=== PATIENT | male | born 1980 ===

== ENCOUNTER 2019-10-03 14:33 | Outpatient (CLI) | payer MEDICAID | END 2019-10-03 14:34 | disposition critical access hospital (66) | LOC: EMS 14:33 | PROVIDERS: ATTEND Surgery | DX: R46.89 Other symptoms and signs involving appearance and behavior (principal); R47.81 Slurred speech | CPT/HCPCS: A0425; A0429; A0999 ==

== ENCOUNTER 2019-10-03 14:52 | Emergency (ER) | payer MEDICAID ==
--- NOTE | 2019-10-03 15:00 | ED Physician Documentation ---
<Julito Hauser - Last Filed: 10/03/19 22:52> PD HPI MHE - Stated complaint Stated Complaint: MHE/SI/HI - History obtained from History obtained from: Patient, EMS - History of Present Illness Timing - onset: Today (38-year-old gentleman without pertinent medical history presents by ambulance restrained for mental health evaluation. He admits to using methamphetamines but will not tell me when, admits to using alcohol just prior to arrival. I guess he was outside of a local [employer] store and yelling profanities and may be brandishing a knife. He is somewhat uncooperative historian.) Review of Systems Unable to obtain: Uncooperative PD PAST MEDICAL HISTORY - Present Medications Home Medications: Ambulatory Orders Medication Instructions Recorded Confirmed Home Medications Unobtainable 10/03/19 10/03/19 [HOME MEDICATIONS UNOBTAINABLE] - Allergies Allergies/Adverse Reactions: Allergies Allergy/AdvReac Type Severity Reaction Status Date / Time No Known Drug Allergies Allergy Verified 10/03/19 15:11 PD ED PE NORMAL - Vitals Vital signs reviewed: Yes - General General: Other (He seems to be alert and oriented, hypervigilant, moving a lot.) - HEENT HEENT: PERRL, EOMI - Neck Neck: Supple, no meningeal sign, No bony TTP - Cardiac Cardiac: RRR, No murmur - Respiratory Respiratory: No respiratory distress, Clear bilaterally - Abdomen Abdomen: Soft, Non tender - Back Back: No CVA TTP, No spinal TTP - Derm Derm: Normal color, Warm and dry - Extremities Extremities: No deformity, No tenderness to palpate - Neuro Neuro: Alert and oriented X 3, No motor deficit, No sensory deficit, Normal speech - Psych Psych: Other (Uncooperative, somewhat belligerent,) Results - EKG (time done) 1505 Rate: Rate (enter#) (80) Rhythm: NSR [place]: Normal Intervals: Normal RI QRS: Normal Ischemia: Normal ST segments Computer interpretation: Agree with computer PD MEDICAL DECISION MAKING - ED course ED course: 38-year-old Arrives restrained, belligerent and yelling. He required some sedation for safety. Original plan was to sober him up from the mouth and the alcohol and see if he was any better, but after several hours he was not really improving. Now clinically sober from alcohol perspective. I also learned that he at some point had been inpatient at [facility] suggesting Severe underlying organic psychiatric illness. The DCR was dispatched for evaluation. Departure - Departure Disposition: 65 Psych Hosp/Unit DC/Xfer Clinical Impression: Alcoholic intoxication, Methamphetamine intoxication, Psychiatric symptoms Condition: Stable Instructions: ED Drug Abuse General, ED Alcohol Intoxication Comments: I recommend that you stop using alcohol and drugs, they are bad for you. Return anytime for new or worsening symptoms. <Blaze Hyatt - Last Filed: 10/04/19 06:03> Results - Vitals Vitals: Vital Signs - 24 hr 10/03/19 10/03/19 10/04/19 15:11 18:28 00:45 Temperature 36.4 C L 36.7 C 36.5 C Heart Rate 82 70 63 Respiratory 20 14 18 Rate Blood Pressure 112/69 128/62 125/69 O2 Saturation 97 100 100 10/04/19 02:12 Temperature 36.7 C Heart Rate 98 Respiratory 16 Rate Blood Pressure 116/91 H O2 Saturation 97 Oxygen O2 Source Room air - Labs Labs: Laboratory Tests 10/03/19 10/03/19 10/03/19 15:20 15:20 15:40 WBC 7.9 RBC 4.68 L Hgb 14.4 Hct 42.1 MCV 90.0 MCH 30.8 MCHC 34.2 RDW 13.2 Plt Count 267 MPV 9.8 Neut # (Auto) 3.4 Lymph # (Auto) 3.2 [place] # (Auto) 0.8 Eos # (Auto) 0.3 Baso # (Auto) 0.0 Absolute Nucleated RBC 0.00 Nucleated RBC % 0.0 Sodium 139 Potassium 3.6 Chloride 109 Carbon Dioxide 18 L Anion Gap 12.0 BUN 16 Creatinine 0.8 Estimated GFR (MDRD) 109 Glucose 91 Calcium 8.8 Total Bilirubin 1.0 AST 34 ALT 34 Alkaline Phosphatase 63 Total Creatine Kinase 231 Total Protein 7.0 Albumin 4.0 Globulin 3.0 Albumin/Globulin Ratio 1.3 Lipase 28 Urine Color YELLOW Urine Clarity CLEAR Urine pH 6.0 Ur Specific Thelma <=1.005 Urine Protein NEGATIVE Urine Glucose (UA) NEGATIVE Urine Ketones NEGATIVE Urine Occult Blood NEGATIVE Urine Nitrite NEGATIVE Urine Bilirubin NEGATIVE Urine Urobilinogen 0.2 (NORMAL) Ur Leukocyte Esterase NEGATIVE Ur Microscopic Review NOT INDICATED Urine Culture Comments NOT INDICATED Urine Opiates Screen NEGATIVE Ur Oxycodone Screen NEGATIVE Urine Methadone Screen NEGATIVE Ur Propoxyphene Screen NEGATIVE Ur Barbiturates Screen NEGATIVE Ur Tricyclics Screen NEGATIVE Ur Phencyclidine Scrn NEGATIVE Ur Amphetamine Screen POSITIVE H U Methamphetamines Scrn POSITIVE H U Benzodiazepines Scrn NEGATIVE Urine Cocaine Screen NEGATIVE U Cannabinoids Screen NEGATIVE Ethyl Alcohol 201.0 10/03/19 10/03/19 17:55 21:30 WBC RBC Hgb Hct MCV MCH MCHC RDW Plt Count MPV Neut # (Auto) Lymph # (Auto) [place] # (Auto) Eos # (Auto) Baso # (Auto) Absolute Nucleated RBC Nucleated RBC % Sodium Potassium Chloride Carbon Dioxide Anion Gap BUN Creatinine Estimated GFR (MDRD) Glucose Calcium Total Bilirubin AST ALT Alkaline Phosphatase Total Creatine Kinase Total Protein Albumin Globulin Albumin/Globulin Ratio Lipase Urine Color Urine Clarity Urine pH Ur Specific Thelma Urine Protein Urine Glucose (UA) Urine Ketones Urine Occult Blood Urine Nitrite Urine Bilirubin Urine Urobilinogen Ur Leukocyte Esterase Ur Microscopic Review Urine Culture Comments Urine Opiates Screen Ur Oxycodone Screen Urine Methadone Screen Ur Propoxyphene Screen Ur Barbiturates Screen Ur Tricyclics Screen Ur Phencyclidine Scrn Ur Amphetamine Screen U Methamphetamines Scrn U Benzodiazepines Scrn Urine Cocaine Screen U Cannabinoids Screen Ethyl Alcohol 111.3 74.4 PD MEDICAL DECISION MAKING - ED course Complexity details: other (patient signed out to me at shift change by dr hauser. patient accepted at [facility]. )
[2019-10-03] MEDS ORDERED: OLANZapine 10 MG VIAL IM STA ×2 (15:18→19:14)
[2019-10-03] MEDS ORDERED: LORazepam 2 MG/ML VIAL IM STA (15:18)
[2019-10-03 15:26] LABS: BASOPHILS % (AUTO) 0.5 %; EOSINOPHILS # (AUTO) 0.3 10^3/uL (0.0-0.7); EOSINOPHILS % (AUTO) 4.1 %; HGB - HEMOGLOBIN 14.4 g/dL (14.0-18.0); LYMPHOCYTES # (AUTO) 3.2 10^3/uL (1.5-3.5); LYMPHOCYTES % (AUTO) 41.2 %; MEAN CORPUSCULAR HEMOGLOBIN 30.8 pg (27.0-31.0); MEAN CORPUSCULAR HGB CONC 34.2 g/dL (32.0-36.0); MEAN PLATELET VOLUME 9.8 fL (7.4-11.4); MONOCYTES # (AUTO) 0.8 10^3/uL (0.0-1.0); MONOCYTES % (AUTO) 10.1 %; NEUTROPHILS # (AUTO) 3.4 10^3/uL (1.5-6.6); NEUTROPHILS % (AUTO) 43.7 %; PLT - PLATELET COUNT 267 10^3/uL (130-450); RED BLOOD COUNT 4.68 10^6/uL (4.70-6.10); RED CELL DISTRIBUTION WIDTH 13.2 % (12.0-15.0); WHITE BLOOD COUNT 7.9 x10^3/uL (4.8-10.8)
[2019-10-03 15:37] LABS: ALBUMIN/GLOBULIN RATIO 1.3 (1.0-2.2); CALCIUM 8.8 mg/dL (8.5-10.3); CREATININE 0.8 mg/dL (0.6-1.2)
[2019-10-03 15:44] LABS: BILIRUBIN,URINE NEGATIVE (NEGATIVE); GLUCOSE, URINE (UA) NEGATIVE (NEGATIVE); KETONES,URINE (UA) NEGATIVE (NEGATIVE); LEUKOCYTE ESTERASE, URINE NEGATIVE (NEGATIVE); MUDS CUTOFF CONCENTRATIONS CUTOFF CONC BELOW:; NITRITE,URINE NEGATIVE (NEGATIVE); OCCULT BLOOD,URINE NEGATIVE (NEGATIVE); PROTEIN,URINE NEGATIVE (NEGATIVE); UROBILINOGEN,URINE 0.2 (NORMAL) E.U./dL (NORMAL)
[2019-10-03 15:50] LABS: CLARITY,URINE CLEAR (CLEAR)
[2019-10-03 15:57] LABS: AMPHETAMINE SCREEN,URINE POSITIVE (NEGATIVE); BENZODIAZEPINES SCREEN, URINE NEGATIVE (NEGATIVE); COCAINE SCREEN URINE NEGATIVE (NEGATIVE); METHADONE SCREEN, URINE NEGATIVE (NEGATIVE); METHAMPHETAMINES SCREEN, URINE POSITIVE (NEGATIVE); OPIATE SCREEN, URINE NEGATIVE (NEGATIVE); OXYCODONE SCREEN, URINE NEGATIVE (NEGATIVE); PROPOXYPHENE SCREEN, URINE NEGATIVE (NEGATIVE); TRICYCLIC ANTIDEPRESSANT,URINE NEGATIVE (NEGATIVE)
[2019-10-04 09:01] VITALS: BP 137/74
== END 2019-10-04 09:32 ==
LOC: ED 14:52
DX: F29 Unspecified psychosis not due to a substance or known physiological condition (principal); F10.129 Alcohol abuse with intoxication, unspecified; F15.129 Other stimulant abuse with intoxication, unspecified
CPT/HCPCS: 36415; 80053; 80306; 80320; 81003; 82550; 83690; 85025; 93005; 96372; 99285; J2060; 81001; 87086

== ENCOUNTER 2020-12-22 18:29 | Outpatient (CLI) | payer MEDICAID | END 2020-12-22 18:30 | disposition critical access hospital (66) | LOC: EMS 18:29 | DX: R11.2 Nausea with vomiting, unspecified (principal) | CPT/HCPCS: A0425; A0429; A0999 ==

== ENCOUNTER 2020-12-22 18:48 | Emergency (ER) | payer MEDICAID ==
--- NOTE | 2020-12-22 20:35 | ED Physician Documentation ---
History of Present Illness - Stated complaint Stated Complaint: ETOH/ VOMITING - Chief complaint Chief Complaint: General - History obtained from History obtained from: Patient (limited historian; uncooperative, dismissive, repeatedly and rapidly falling aleep during H+P) - History of Present Illness Timing: Today Pain level now: 0 - Additonal information Additional information: BIBA. Reportedly found outside of [place] business passed out on ground . EMS relays h/o vomiting today as well Patient falls asleep repeatedly during my attempts to obtain HPI/ROS. He says he's here because "someone called"; asked why, he says "because I was passed out; again, asked why, he says "cause I've been drinking". He says to me that he had been sober until drinking last night. [facility] body is patient's 12th ED visits over past 12 months to 7 different EDs. Most of the previous visits involve alcohol abuse, mental health issues, or both. Patient refuses to answer other questions after answering the above. He says "I just want to go back to the halfway", but cannot tell me where nor the name of the halfway. Review of Systems Unable to obtain: Intoxicated, Uncooperative PD PAST MEDICAL HISTORY - Past Medical History Past Medical History: Yes Other Past Medical History: unable to obtain - Present Medications Home Medications: Ambulatory Orders Medication Instructions Recorded Confirmed Home Medications Unobtainable 10/03/19 12/22/20 [HOME MEDICATIONS UNOBTAINABLE] - Allergies Allergies/Adverse Reactions: Allergies Allergy/AdvReac Type Severity Reaction Status Date / Time No Known Drug Allergies Allergy Verified 12/22/20 18:57 - Social History Does the pt smoke?: No Smoking Status: Never smoker Does the pt drink ETOH?: Yes PD ED PE NORMAL - Vitals Vital signs reviewed: Yes - General General: No acute distress, Well developed/nourished, Other (asleep, drowsy but awakens to voice (although sometimes needs gentle tactile to wake/keep awake)) - HEENT HEENT: Atraumatic, PERRL, Other (no racoon eyes/battles sign) - Neck Neck: No bony TTP - Cardiac Cardiac: RRR, No murmur - Respiratory Respiratory: No respiratory distress, Clear bilaterally - Abdomen Abdomen: Soft, Non tender - Derm Derm: Normal color, Warm and dry - Extremities Extremities: No edema Results - Vitals Vitals: Vital Signs - 24 hr 12/22/20 12/22/20 12/22/20 18:54 20:57 21:30 Temperature 97.6 C H 36.6 C 36.7 C Heart Rate 81 87 100 Respiratory 16 15 13 Rate Blood Pressure 110/73 106/61 128/66 O2 Saturation 93 97 93 12/22/20 12/23/20 23:00 04:55 Temperature 36.6 C 36.3 C L Heart Rate 74 80 Respiratory 14 16 Rate Blood Pressure 109/60 119/74 O2 Saturation 96 100 Oxygen O2 Source Room air PD MEDICAL DECISION MAKING - ED course Complexity details: reviewed old records (records from [facility] ED from 11/20/20 visits faxed and reviewed), considered differential, d/w patient ED course: presents due to being passed out in public, admits to heavy drinking since last night but mostly uncooperative with attempts to gather HPI/ROS. Plan is to let patient sleep until he is sober enough to maintain conversation, provide appropriate answers, and ascertain whether he wants help with detox and/or MHE. Patient held in ED for over 10 hours for observation and during this time he steadily became increasingly awake, alert, and eventually was AAOx3. he is conversant and cooperative on reevaluation prior to discharge. he admits to drinking heavily last night although he does not remember coming to ED. He says he feels fine and requests discharge home. he is able to ambulate to/from bathroom with steady gait and without assistance. Departure - Departure Disposition: 01 Home, Self Care Clinical Impression: Alcoholic intoxication Qualifiers: Complication of substance-induced condition: with delirium Qualified Code(s): F10.921 - Alcohol use, unspecified with intoxication delirium Condition: Good Instructions: ED Alcohol Intoxication Follow-Up: Rg Witt MD [Provider Admit Priv/Credential] - Discharge Date/Time: 12/23/20 05:15
[2020-12-23 05:06] VITALS: BP 119/74
== END 2020-12-23 05:15 | disposition home or self-care (01) ==
LOC: EDUNIT# → ED 18:48
DX: F10.921 Alcohol use, unspecified with intoxication delirium (principal)
CPT/HCPCS: 80053; 80320; 83690; 85025; 99281; 99283